=== PATIENT | female | born 1985 | race Caucasian/White ===

== ENCOUNTER → 2023-01-24 | Outpatient (CLI) | payer BC ==
[~2023-01-24] MED LIST: CYCL10 PO; FISH1000 PO; MULVITMIND PO; OXYACE5T PO
[2023-01-24 13:11] LABS: Source, Urine Clean Catch
[2023-01-24 14:38] LABS: Appearance, Urine Hazy (Clear); Bilirubin, Urine Neg (Neg); Blood, Urine Neg (Neg); Color, Urine Yellow (P-Yellow); Glucose Qualitative, Urine Neg (Neg); Ketones, Urine Neg (Neg); Leukocyte Esterase, Urine 1+ (Neg); Nitrite, Urine Pos (Neg); Protein, Urine Neg (Neg); Urobilinogen, Urine NORM (Normal)
[2023-01-24 15:14] LABS: Bacteria Many /hpf; Red Blood Cells, Urine 0-2 /hpf (0-2); Squamous Epithelial Cells Few /hpf (Few)
== END | disposition home or self-care (01) ==
LOC: LAB 13:10 → LAB SHORT 13:10
PROVIDERS: Student in an Organized Health Care Education/Training Program
DX: R30.0 Dysuria (principal)
CPT/HCPCS: 81001; 87077; 87086; 87186

== ENCOUNTER → 2025-01-02 | Outpatient (CLI) | payer OTHER | LOC: LAB SHORT 13:33 → LAB 13:33 | DX: R30.0 Dysuria (principal) | CPT/HCPCS: 87077; 87086; 87186 ==